=== PATIENT | female | born 1950 | race African-American/Black ===

== ENCOUNTER 2020-04-15 03:59 | Inpatient (IN) | payer OTHER ==
[~2020-04-15] VITALS: Ht 149.9 cm; Wt 74.4 kg
[~2020-04-15 03:59] MED LIST: ALDACTONE25 MG PO; AMLODIPINE BESY10 MG PO; ASPIRIN325 PO; BAYER CHEWABLE81 MG PO; CARVEDILOL25 MG PO; COREG CR10 MG PO; CRESTOR10 MG PO; GLYBURIDE 2.52.5 MG PO; IMDUR 60 MG TAB60 M1 PO; LASIX 20 MG TAB20 MG PO; LISINOPRIL20 MG PO
[2020-04-15] MEDS ORDERED: NEURONTIN100 MG PO (04:09)
[2020-04-15] MEDS ORDERED: RENVELA800 MG PO (04:09)
[2020-04-15] MEDS ORDERED: RENAPLEX-D TAB1 EACH PO (04:10)
[2020-04-15] MEDS ORDERED: LIPITOR 20 MG T20 M1 PO (04:10)
[2020-04-15] MEDS ORDERED: PANTOPRAZOLE SO40 M1 PO (04:10)
[2020-04-15] MEDS ORDERED: GLIPIZIDE ER5 MG PO (04:11)
[2020-04-15] MEDS ORDERED: MELOXICAM15 MG PO (04:11)
[2020-04-15] MEDS ORDERED: NORVASC 2.5 MG2.5 M1 PO (04:11)
[2020-04-15] MEDS ORDERED: CARVEDILOL25 MG PO (04:12)
[2020-04-15 04:14] VITALS: BP 105/49
[2020-04-15 04:32] LABS: ABSOLUTE NEUTROPHILS 7.6 thou/uL (1.4-8.2); BASOPHILS 0.9 % (0.0-2.0); EOSINOPHILS 0.6 % (0.0-3.0); HEMATOCRIT 26.1 % (37.0-47.0); HEMOGLOBIN 8.8 gm/dL (12.0-15.0); LYMPHOCYTES 16.6 % (24.0-44.0); MCH 29.6 pg (26.0-34.0); MCHC 33.6 g/dL (28.0-37.0); MCV 88.1 fL (80.0-100.0); PLATELET COUNT 172 thou/uL (150-400); POLYS 75.9 % (36.0-66.0); RBC 2.96 mil/uL (4.20-5.00); RDW 19.3 % (10.5-14.5)
[2020-04-15 04:44] LABS: ANION GAP 10 mmol/L (7-16); BUN 95 mg/dL (7-18); CALCIUM 8.1 mg/dL (8.5-10.1); CHLORIDE 99 mmol/L (98-107); CO2 24 mmol/L (21-32); GLUCOSE 234 mg/dL (74-106); SODIUM 133 mmol/L (136-145); TROPONIN-I <0.06 ng/mL (<0.06)
[2020-04-15 04:49] LABS: POTASSIUM 9.4 mmol/L (3.5-5.1)
[2020-04-15 04:51] LABS: ALBUMIN 3.2 g/dL (3.4-5.0); DIRECT BILIRUBIN < 0.1 mg/dL (<0.1-0.2); LIPASE 300 U/L (73-393); SGOT 429 U/L (15-37); SGPT 478 U/L (30-65); TOTAL BILIRUBIN 0.4 mg/dL (0.2-1.0); TOTAL PROTEIN 7.4 g/dL (6.4-8.2)
--- NOTE | 2020-04-15 08:14 | EKG ---
[facility] [place] [address] ELECTROCARDIOGRAM REPORT Name: BETTINA COLLINS Room #: 170-8 ADM IN M.R.#: [id number] Admission: 04/15/20 Attend Phys: Sia Altman MD Discharge: Date of : 54 Report #: [id number] THIS REPORT FOR: cc: Mario Snider MD, Elliott L. MD Couchonnal, Luis F. 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 : 1950 Requested By: Clovis Roberson Order Number: [id number] MD: Dc Sarah Measurements Intervals [place] Rate: 48 P: LA: QRS: 93 QRSD: 97 T: 12 QT: 484 QTc: 433 Interpretive Statements Junctional rhythm Right axis deviation Compared to ECG 04/17/2016 02:06:46 Junctional rhythm now present Right-axis deviation now present Sinus rhythm no longer present T-wave abnormality no longer present Electronically Signed On 04-15-2020 8:14:36 CDT by Dc Sarah [email or web address] <ELECTRONICALLY SIGNED> By: Dc Sarah MD 04/15/20813 0 0 Dc Sarah MD /EPI
[2020-04-15 08:27] LABS: CHOLESTEROL 110 mg/dL (<200); HDL CHOLESTEROL 51 mg/dL (>40); LDL CHOLESTEROL 36 mg/dL (<100); TC:HDL 2.2 Ratio (Not establshd); TRIGLYCERIDE 116 mg/dL (<150); VLDL 23 mg/dL (<40)
[2020-04-15 08:29] LABS: SERUM ASSESSMENT Clear
[2020-04-15 08:54] LABS: TSH 10.792 uIU/mL (0.358-3.740)
[2020-04-15 10:03] LABS: FOLIC ACID 47.9 ng/mL (8.6-58.9)
--- NOTE | 2020-04-15 11:50 | NUR ---
VASCULAR ACCESS CONSULTED FOR CVAD. PT DID SIGN CONSENT BUT NOT VERY COOPERATIVE, RESTLESS. HAVING DIFFICULTY LAYING FLAT OR STAYING STILL AT PRESENT. SO 2 ADDITIONAL PIV'S STARTED. WILL DO CVAD IF PT ABLE TO COOPERATE LATER.
--- NOTE | 2020-04-15 16:18 | 2DMMODE ---
[facility] [place] [address] 2 D/M-MODE ECHOCARDIOGRAM Name: BETTINA COLLINS Room #: 170-8 ADM IN M.R.#: [id number] Admission: 04/15/20 Attend Phys: Sia Altman MD Discharge: Date of : 54 Report #: [id number] THIS REPORT FOR: cc: Mario Snider MD, Elliott L. MD Lammoglia, Francisco J. MD ~ APPROVED REPORT Study performed: 04/15/2020 13:57:06 EXAM: Comprehensive 2D, Doppler, and color-flow Echocardiogram Patient Location: ER Room #: 8 Status: routine BSA: 1.72 HR: 87 bpm BP: 151/85 mmHg Rhythm: NSR Other Information Study Quality: Good Indications Arrhythmia Assess Ejection Fraction Hypertension/HDD 2D Dimensions RVDd: 36.54 mm IVSd: 14.28 (7-11mm) LVOT Diam: 19.97 (18-24mm) LVDd: 37.91 mm PWd: 13.20 (7-11mm) Ascending Ao: 28.17 (22-36mm) LVDs: 25.19 (25-40mm) Aortic Root: 32.74 mm IVC: 21.00 mm Volumes Left Atrial Volume (Systole) Single Plane 4CH: 68.01 mL Single Plane 2CH: 61.38 mL LA ESV Index: 43.00 mL/m2 Aortic Valve AoV Peak Varun.: 2.31 m/s AO Peak Gr.: 21.29 mmHg LVOT Max P.93 mmHg LVOT Max V: 1.49 m/s [facility] [address] [address] 2 D/M-MODE ECHOCARDIOGRAM Name: BETTINA COLLINS Room #: 170-8 [facility] IN [facility].#: [id number] Admission: 04/15/20 Attend Phys: Bruno Moeller Discharge: Date of : 54 Report #: [id number] Vmax: 2.03 cm2 Mitral Valve E/A Ratio: 0.8 MV Decel. Time: 165.51 ms MV E Max Varun.: 1.25 m/s MV A Varun.: 1.52 m/s MV PHT: 48.00 ms IVRT: 41.52 ms Pulmonary Valve PV Peak Varun.: 1.44 m/s PV Peak Gr.: 8.33 mmHg Pulmonary Vein P Vein S: 1.07 m/s P Vein A: 0.27 m/s P Vein D: 0.61 m/s P Vein A Dur.: 101.5 msec P Vein S/D Ratio: 1.75 Tricuspid Valve TR Peak Varun.: 4.27 m/s TR Peak Gr.: 72.82 mmHg PA Pressure: 83.00 mmHg Left Ventricle The left ventricle is normal size. There is normal LV segmental wall motion. Mild concentric left ventricular hypertrophy. The left ventricular systolic function is normal. The left ventricular ejection fraction is within the normal range. LVEF is 60-65%. Grade I - abnormal relaxation pattern. Right Ventricle The right ventricle is normal size. The right ventricular systolic function is normal. Atria Left atrium is dilated. Right atrium is dilated. Aortic Valve The aortic valve is normal in structure. The Aortic valve is sclerotic. No aortic regurgitation is present. There is no aortic valvular stenosis. Mitral Valve The mitral valve is normal in structure. Mild mitral regurgitation. No evidence of mitral valve stenosis. [facility] [address] [place] [address] 2 D/M-MODE ECHOCARDIOGRAM Name: BETTINA COLLINS Aida Room #: 170-8 ADM IN [facility].#: [id number] Admission: 04/15/20 Attend Phys: Bruno Moeller Discharge: Date of : 54 Report #: [id number] Tricuspid Valve The tricuspid valve is normal in structure. There is mild to moderate tricuspid regurgitation. Estimated PAP 83 mmHg. There is severe pulmonary hypertension. Pulmonic Valve The pulmonary valve is normal in structure. Trace to mild pulmonic regurgitation. Great Vessels The aortic root is normal in size. IVC is dilated and collapses <50% with inspiration. Pericardium There is no pericardial effusion. <Conclusion> The left ventricle is normal size. LVEF is 60-65%. Left atrium is dilated. Right atrium is dilated. The aortic valve is normal in structure. The Aortic valve is sclerotic. Mild mitral regurgitation. The tricuspid valve is normal in structure. There is mild to moderate tricuspid regurgitation. Estimated PAP 83 mmHg. There is severe pulmonary hypertension. The pulmonary valve is normal in structure. Trace to mild pulmonic regurgitation. There is no pericardial effusion. <ELECTRONICALLY SIGNED> By: Louie Bonds MD 04/15/20 1617 161 161 Louie Bonds MD /INF
[2020-04-15 17:00] LABS: HEMATOCRIT 25.3 % (37.0-47.0); HEMOGLOBIN 8.8 gm/dL (12.0-15.0); MCH 29.8 pg (26.0-34.0); MCHC 34.8 g/dL (28.0-37.0); MCV 85.6 fL (80.0-100.0); RBC 2.95 mil/uL (4.20-5.00); RDW 19.1 % (10.5-14.5); WBC 11.8 thou/uL (4.0-11.0)
[2020-04-15 17:14] LABS: ALBUMIN 3.4 g/dL (3.4-5.0); CALCIUM 8.6 mg/dL (8.5-10.1); PHOSPHORUS 2.6 mg/dL (2.5-4.9)
[2020-04-15 17:15] LABS: CREATININE 5.6 mg/dL (0.6-1.0); POTASSIUM 4.6 mmol/L (3.5-5.1)
--- NOTE | 2020-04-15 19:42 | HC ---
[facility] [place] [address] CONSULTATION Name: BETTINA COLLINS Room #: 170-8 ADM IN M.R.#: [id number] Admission: 04/15/20 Attend Phys: Sia Altman MD Discharge: Date of : 54 Report #: [id number] THIS REPORT FOR: cc: Mario Snider MD,Jace Ramos MD, MD ~ CC: Sia Snider DATE OF SERVICE: 04/15/2020 REASON FOR CONSULTATION: End-stage renal disease with life threatening hyperkalemia. REASON FOR PRESENTATION: Brought by EMS accompanied by her spouse for missing dialysis. HISTORY OF PRESENT ILLNESS: This is a 69-year-old who was not able to provide me with much details, but she had missed 3 of her dialysis sessions. She is usually on a Saturday, and Saturday. She goes to [facility] in [place]. She told the Emergency Room staff that she slept through most of the week because of a new added blood pressure medication and she missed as stated above 3 of her dialysis session. She did not report any active symptoms to me during her encounter with me, but she was somewhat lethargic and very vague on details, she reported to the to the Emergency staff that she has been having some vomiting. She denied any chest pain or shortness of breath. The patient was extremely bradycardic on her presentation to the Emergency Room. The ER staff related to me that she had complete heart block, but when i reviewed her EKG, it showed a jnctional rhythm . The patient had been on dialysis for the last 4 years. She has longstanding diabetes mellitus and hypertension. 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 Other details as stated above are not available due to the patient's current condition. PAST MEDICAL HISTORY: 1. End-stage renal disease, maintained on hemodialysis, thought to be due to diabetes mellitus and hypertension. 2. Remote history of cerebrovascular accident. 3. Hypertension. 4. Left-sided AV fistula. 5. End-stage renal disease, maintained on hemodialysis every Saturday, and Saturday. MEDICATIONS: Reported. 1. Aspirin. [address] [address] CONSULTATION Name: BETTINA COLLINS Room #: 170-8 ADM IN ..#: [id number] Admission: 04/15/20 Attend Phys: Sia Altman MD Discharge: Date of : 54 Report #: [id number] 2. Crestor. 3. Amlodipine. 4. Gabapentin. 5. Sevelamer. 6. Meloxicam. 7. Glipizide. 8. It is listed that the patient is taking lisinopril and spironolactone. However, I reviewed her bag of medications and none of those are with her. REVIEW OF SYSTEMS: Unable to obtain given the patient's current mental status. FAMILY HISTORY: Unable to obtain given the patient's current mental status. SOCIAL HISTORY: She lives with her spouse. Other details are not available. PHYSICAL EXAMINATION: GENERAL: She was lethargic, confused. She goes into episodes of orientation, then dozes into deep sleep. VITAL SIGNS: Blood pressure was 130/60, temperature was 36.5. Pulse rate was 50, maintained on dopamine infusion. HEAD AND NECK: There is no jugular venous distention. CHEST: Decreased air entry bilaterally with crackles. CARDIOVASCULAR: She is bradycardic with no rub detected. ABDOMEN: Soft, nontender with no hepatosplenomegaly. LOWER EXTREMITIES: There is no edema. UPPER EXTREMITIES: There is a left-sided AV fistula. LABORATORY VALUES: Revealed a sodium of 133, potassium of 9.4, chloride of 99, bicarb 24, BUN of 95, creatinine of 13. Her troponins initially were less than 0.06. EKG was consistent with junctional rhythm . CBC showed a hemoglobin of 8.8. ASSESSMENT, IMPRESSION AND PLAN: 1. Life threatening hyperkalemia. 2. End-stage renal disease, noncompliance with dialysis regimen. 3. The patient had received appropriate treatment for her hyperkalemia including calcium gluconate. Emergent hemodialysis was arranged for the patient. We will repeat hemodialysis in the morning. Her rhythm issues should resolve with improvement of her hyperkalemia. I will repeat her potassium later this afternoon. 4. Counseling about compliance with her dialysis regimen. 5. Workup for her anemia. [address] [address] CONSULTATION Name: KARINABETTINA D Room #: 170-8 ADM IN M.R.#: [id number] Admission: 04/15/20 Attend Phys: Sia Altman MD Discharge: Date of : 54 Report #: [id number] 6. Continue to follow during her hospital stay regarding her dialysis issues and end-stage renal disease related problems. The patient was evaluated in the Emergency Room while on dialysis this morning. <ELECTRONICALLY SIGNED> By: Jace Kemp MD 04/15/20 1942 0752 3 Jace Kemp MD /nt
[2020-04-15 21:54] VITALS: BP 125/57
[2020-04-15 23:30] VITALS: BP 132/69
[2020-04-16 00:06] LABS: GLYCOHEMOGLOBIN (HGB A1C) 5.6 % (4.8-5.6)
--- NOTE | 2020-04-16 04:20 | NUR ---
PT ARRIVED ON THE UNIT FROM ER @2330. A&OX4 ADDMISSION DONE AND CHARTED. PT STATED HASN'T EATEN ANYTHING ALL DAY. SPOKE TO ONCALL PROVIDER DIET CHANGED AND SNACK BOX PROVIDED. MED REC DONE AND PT HOME MEDICATION SENT TO PHARMACY. PT UP WITH STANDBY TO THE BATHROOM. DENIES PAIN/N/V. WILL CONT TO MONITOR.
[2020-04-16 04:30] VITALS: BP 120/63
[2020-04-16 06:58] LABS: BASOPHILS 0.7 % (0.0-2.0); HEMATOCRIT 24.1 % (37.0-47.0); HEMOGLOBIN 8.3 gm/dL (12.0-15.0); LYMPHOCYTES 25.6 % (24.0-44.0); MCH 30.1 pg (26.0-34.0); MCHC 34.6 g/dL (28.0-37.0); MONOCYTES 8.5 % (1.0-8.0); PLATELET COUNT 200 thou/uL (150-400); POLYS 64.2 % (36.0-66.0); RBC 2.77 mil/uL (4.20-5.00); RDW 19.4 % (10.5-14.5); WBC 9.3 thou/uL (4.0-11.0)
[2020-04-16 07:12] LABS: CALCIUM 8.6 mg/dL (8.5-10.1); PHOSPHORUS 3.3 mg/dL (2.5-4.9); POTASSIUM 4.8 mmol/L (3.5-5.1)
[2020-04-16 07:13] LABS: CREATININE 7.3 mg/dL (0.6-1.0)
[2020-04-16 07:15] LABS: ALBUMIN 3.1 g/dL (3.4-5.0); DIRECT BILIRUBIN 0.2 mg/dL (<0.1-0.2); TOTAL BILIRUBIN 0.5 mg/dL (0.2-1.0); TOTAL PROTEIN 6.6 g/dL (6.4-8.2)
[2020-04-16 08:20] VITALS: BP 116/66
[2020-04-16 12:15] VITALS: BP 135/56
--- NOTE | 2020-04-16 12:17 | NUR ---
PT ASSESSED, VSS, POC REVIEWED, PT VERBALIZED UNDERSTANDING, HD NURSE AT BEDSIDE DOING DIALYSIS, PT APPEARS TO BE RESTING COMFORTABLY IN BED, REPLIED "NO" WHEN ASKED IF HAVING ANY PAIN, TV ON, CONSENT FOR EGD SIGNED, WILL MONITOR
[2020-04-16 16:30] VITALS: BP 134/82
[2020-04-16 19:31] VITALS: BP 143/75
[2020-04-17 04:45] VITALS: BP 142/77
--- NOTE | 2020-04-17 06:27 | NUR ---
ASSESSMENTS CHARTED, MEDS CHARTED GIVEN. PATIENT RESTING IN ROOM . PATIENT IS TO HAVE AN ENDOSCOPY THIS MORNING. NPO SINCE MIDNIGHT. PATIENT COVID NEG. PLAN OF CARE SHE MAY GO HOME THIS AM AFTER HER PROCEDURE. FALL PRECAUTIONS IN PLACE DURING SHIFT.
[2020-04-17 08:20] VITALS: BP 143/69
[2020-04-17 10:55] LABS: HEMOGLOBIN 9.6 gm/dL (12.0-15.0)
[2020-04-17 10:56] LABS: HEMATOCRIT 28.7 % (37.0-47.0)
[2020-04-17 12:15] VITALS: BP 178/87
[2020-04-17 12:30] VITALS: BP 135/75
[2020-04-17 13:53] VITALS: BP 135/75
--- NOTE | 2020-04-17 14:35 | NUR ---
ASSUMED PATIENT CARE AT 0700. A/O X4. NO DISDESSS NOTED. HH 9.6. DC TO HOME.
== END 2020-04-17 14:55 | disposition home or self-care (01) | DRG 640 ==
LOC: ER 03:59 → EROBS 05:26 → 2N 23:17
PROVIDERS: Emergency Medicine; Hospitalist; Nurse Practitioner; ADMIT Hospitalist; ATTEND Hospitalist
PROC: 5A1D70Z Performance of Urinary Filtration, Intermittent, Less than 6 Hours Per Day (ICD-10-PCS; principal; 2020-04-15)
PROC: 5A1D70Z Performance of Urinary Filtration, Intermittent, Less than 6 Hours Per Day (ICD-10-PCS; 2020-04-16)
DX: E87.5 Hyperkalemia (principal); N18.6 End stage renal disease; K92.1 Melena; I12.0 Hypertensive chronic kidney disease with stage 5 chronic kidney disease or end stage renal disease; E11.22 Type 2 diabetes mellitus with diabetic chronic kidney disease; E03.9 Hypothyroidism, unspecified; R74.0 Nonspecific elevation of levels of transaminase and lactic acid dehydrogenase [LDH]; E78.5 Hyperlipidemia, unspecified; I51.7 Cardiomegaly; D64.9 Anemia, unspecified; K21.9 Gastro-esophageal reflux disease without esophagitis; M54.9 Dorsalgia, unspecified; G89.29 Other chronic pain; I27.20 Pulmonary hypertension, unspecified; I95.9 Hypotension, unspecified; Z99.2 Dependence on renal dialysis; Z79.82 Long term (current) use of aspirin; Z79.899 Other long term (current) drug therapy; Z79.84 Long term (current) use of oral hypoglycemic drugs; Z91.15 Patient's noncompliance with renal dialysis; Z86.73 Personal history of transient ischemic attack (TIA), and cerebral infarction without residual deficits; Z95.828 Presence of other vascular implants and grafts; Z03.818 Encounter for observation for suspected exposure to other biological agents ruled out
CPT/HCPCS: 10081; 32100

== ENCOUNTER 2021-02-03 23:26 | Inpatient (IN) | payer OTHER ==
[~2021-02-03] VITALS: Ht 149.9 cm; Wt 74.0 kg
[~2021-02-03 23:26] MED LIST changes: +GLIPIZIDE ER5 MG PO; +LIPITOR 20 MG T20 M1 PO; +MELOXICAM15 MG PO; +NEURONTIN100 MG PO; +NORVASC 2.5 MG2.5 M1 PO; +PANTOPRAZOLE SO40 M1 PO; +RENAPLEX-D TAB1 EACH PO; +RENVELA800 MG PO
[2021-02-03 23:35] VITALS: BP 215/103
[2021-02-04] VITALS (7 sets, daily range): BP systolic 142–188; BP diastolic 67–102
[2021-02-04 00:02] LABS: ABSOLUTE NEUTROPHILS 9.1 thou/uL (1.4-8.2); BASOPHILS 0.6 % (0.0-2.0); EOSINOPHILS 1.5 % (0.0-3.0); HEMATOCRIT 24.6 % (37.0-47.0); HEMOGLOBIN 8.4 gm/dL (12.0-15.0); LYMPHOCYTES 15.4 % (24.0-44.0); MCH 29.8 pg (26.0-34.0); MCHC 34.1 g/dL (28.0-37.0); MCV 87.4 fL (80.0-100.0); MONOCYTES 5.7 % (1.0-8.0); PLATELET COUNT 202 thou/uL (150-400); POLYS 76.8 % (36.0-66.0); RBC 2.82 mil/uL (4.20-5.00); RDW 16.8 % (10.5-14.5); WBC 11.9 thou/uL (4.0-11.0)
[2021-02-04 00:04] LABS: CALCIUM 8.6 mg/dL (8.5-10.1); CREATININE 22.4 mg/dL (0.6-1.0); POTASSIUM 4.6 mmol/L (3.5-5.1)
[2021-02-04 00:05] LABS: BE(vivo) -7.3 mmol/L (-2 to +3); HCO3 17.2 mmol/L (22.0-26.0); PCO2 31.8 mmHg (35.0-45.0); PO2 68.4 mmHg (80.0-100.0); pH 7.352 (7.360-7.450); sO2 93.2 % (92.0-98.0)
[2021-02-04 00:12] LABS: ALBUMIN 3.5 g/dL (3.4-5.0); TOTAL BILIRUBIN 0.6 mg/dL (0.2-1.0); TOTAL PROTEIN 7.7 g/dL (6.4-8.2); TROPONIN-I 0.06 ng/mL (<0.06)
[2021-02-04] MEDS ORDERED: LASIX 40 MG TAB40 MG PO (01:50)
[2021-02-04] MEDS ORDERED: CARVEDILOL25 MG PO (01:51)
--- NOTE | 2021-02-04 04:18 | NUR ---
Admission history reviewd, Admission assessments completed, care plan initiated. Tolerating BIPAP with 50%, sats mid to upper 90's. Oliguric, Lasix IV given, no void yet.
[2021-02-04 06:05] LABS: CALCIUM 8.4 mg/dL (8.5-10.1); CREATININE 22.7 mg/dL (0.6-1.0); POTASSIUM 4.8 mmol/L (3.5-5.1); TROPONIN-I 0.19 ng/mL (<0.06)
[2021-02-04 09:57] LABS: WBC 8.8 thou/uL (4.0-11.0)
[2021-02-04 09:59] LABS: ABSOLUTE NEUTROPHILS 6.7 thou/uL (1.4-8.2); BASOPHILS 1.1 % (0.0-2.0); EOSINOPHILS 0.9 % (0.0-3.0); HEMATOCRIT 23.1 % (37.0-47.0); HEMOGLOBIN 7.7 gm/dL (12.0-15.0); LYMPHOCYTES 16.1 % (24.0-44.0); MCH 29.7 pg (26.0-34.0); MCHC 33.5 g/dL (28.0-37.0); MCV 88.5 fL (80.0-100.0); MONOCYTES 5.6 % (1.0-8.0); PLATELET COUNT 152 thou/uL (150-400); POLYS 76.3 % (36.0-66.0); RBC 2.61 mil/uL (4.20-5.00); RDW 17.2 % (10.5-14.5)
[2021-02-04 10:10] LABS: % SATURATION 20 % (20-39); IRON 33 ug/dL (50-170); TIBC 161 ug/dL (250-450)
--- NOTE | 2021-02-04 12:01 | 2DMMODE ---
[facility] [place] [address] 2 D/M-MODE ECHOCARDIOGRAM Name: BETTINA COLLINS Room #: 350-P ADM IN M.R.#: [id number] Admission: 02/04/21 Attend Phys: Bernardo Monsalve MD Discharge: Date of : 54 Report #: [id number] THIS REPORT FOR: cc: Mario Snider MD, Elliott L. MD Lundgren, Craig H. MD [facility] ~ APPROVED REPORT Study performed: 02/04/2021 10:54:51 EXAM: Comprehensive 2D, Doppler, and color-flow Echocardiogram Patient Location: Bedside Room #: 350 Status: on-call BSA: 1.70 HR: 77 bpm BP: 161/81 mmHg Rhythm: NSR Other Information Study Quality: Good Indications Short of breath. Rule out pericardial effusion. Hx: DM, HTN, HLP, ESRD. 2D Dimensions RVDd: 42.36 mm IVSd: 10.87 (7-11mm) LVOT Diam: 20.22 (18-24mm) LVDd: 47.97 mm PWd: 11.41 (7-11mm) Ascending Ao: 31.96 (22-36mm) LVDs: 29.80 (25-40mm) Left Atrium: 39.49 (27-40mm) Aortic Root: 28.75 mm Volumes Left Atrial Volume (Systole) Single Plane 4CH: 70.77 mL Single Plane 2CH: 78.86 mL LA ESV Index: 47.00 mL/m2 Aortic Valve AoV Peak Varun.: 2.26 m/s AO Peak Gr.: 20.50 mmHg LVOT Max P.15 mmHg AO Mean Gr.: 11.61 mmHg [facility] [address] [place] [address] 2 D/M-MODE ECHOCARDIOGRAM Name: BETTINA COLLINS Room #: [address] [place] [address]#: [id number] Admission: 02/04/21 Attend Phys: Bernardo Monsalve MD Discharge: Date of : 54 Report #: [id number] AO V2 Mean: 1.62 m/s LVOT Max V: 1.43 m/s AO V2 VTI: 53.10 cm SOFÍA Vmax: 2.02 cm2 Mitral Valve E/A Ratio: 0.9 MV Decel. Time: 156.68 ms MV E Max Varun.: 0.81 m/s MV A Varun.: 0.95 m/s MV PHT: 45.44 ms IVRT: 101.50 ms Pulmonary Valve PV Peak Varun.: 1.15 m/s PV Peak Gr.: 5.31 mmHg Pulmonary Vein P Vein S: 0.84 m/s P Vein A: 0.31 m/s P Vein D: 0.64 m/s P Vein A Dur.: 129.2 msec P Vein S/D Ratio: 1.31 Tricuspid Valve TR Peak Varun.: 4.16 m/s RAP Estimate: 5.00 mmHg TR Peak Gr.: 69.07 mmHg PA Pressure: 74.00 mmHg Left Ventricle The left ventricle is normal size. There is normal LV segmental wall motion. Mild concentric left ventricular hypertrophy. Left ventricular systolic function is normal. LVEF is 60-65%. Mild diastolic dysfunction Right Ventricle Right ventricle is at the upper limits of normal. The right ventricular systolic function is normal. Atria Left atrium is moderately dilated. Right atrium is mildly dilated. Aortic Valve Aortic valve is mildly calcified; trileaflet. No aortic regurgitation is present. There is no aortic valvular stenosis. Mitral Valve The mitral valve is normal in structure. Mild mitral regurgitation. [facility] [address] [place] [address] 2 D/M-MODE ECHOCARDIOGRAM Name: BETTINA COLLINS Aida Room #: 350-P [facility] IN [facility]#: [id number] Admission: 02/04/21 Attend Phys: Bernardo Monsalve MD Discharge: Date of : 54 Report #: [id number] Tricuspid Valve The tricuspid valve is normal in structure. Moderate tricuspid regurgitation. Estimated PAP is 75mmHg. Pulmonic Valve The pulmonary valve is normal in structure. Trace pulmonic regurgitation. Great Vessels The aortic root is normal in size. The ascending aorta is normal in size. IVC is normal in size and collapses >50% with inspiration. Pericardium Small anterior pericardial effusion. <Conclusion> Left ventricular systolic function is normal. There is normal LV segmental wall motion. LVEF is 60-65%. Mild diastolic dysfunction Aortic valve is mildly calcified; trileaflet. No aortic regurgitation or stenosis The mitral valve is normal in structure. Mild mitral regurgitation. Moderate tricuspid regurgitation. Estimated pulmonary artery pressure of 75mmHg. Small anterior pericardial effusion. <ELECTRONICALLY SIGNED> By: Fam Kemp MD, [facility] 02/04/21 1201 120 120 Fam Kemp MD, FAC /INF
--- NOTE | 2021-02-04 12:33 | EKG ---
[address] 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
[2021-02-05 00:04] VITALS: BP 148/78
[2021-02-05 04:11] VITALS: BP 133/67
--- NOTE | 2021-02-05 04:50 | NUR ---
Patient making progress towards outcome goals. Oxygenation improved on 3L when awake and tolerating BIPAP at 50% oxygen sats mid to upper 90's. No void. Left arm 3+ edema,mild achiness. Elevated with pillow. Marilia Cooper BUILDING TRADES INSTRUCTOR notified.
[2021-02-05 05:07] LABS: ABSOLUTE NEUTROPHILS 5.3 thou/uL (1.4-8.2); BASOPHILS 0.8 % (0.0-2.0); EOSINOPHILS 2.1 % (0.0-3.0); HEMATOCRIT 20.6 % (37.0-47.0); HEMOGLOBIN 7.1 gm/dL (12.0-15.0); LYMPHOCYTES 21.7 % (24.0-44.0); MCH 30.3 pg (26.0-34.0); MCHC 34.4 g/dL (28.0-37.0); MONOCYTES 7.4 % (1.0-8.0); PLATELET COUNT 134 thou/uL (150-400); RBC 2.34 mil/uL (4.20-5.00); RDW 17.3 % (10.5-14.5); WBC 7.8 thou/uL (4.0-11.0)
[2021-02-05 05:36] LABS: HEP B SURFACE Ab(ANTI-HBS Non Reactive (()); HEPATITIS B SURFACE AG Negative (Negative)
[2021-02-05 05:37] LABS: ALBUMIN 2.7 g/dL (3.4-5.0); CALCIUM 8.4 mg/dL (8.5-10.1); MAGNESIUM 1.8 mg/dL (1.8-2.4); PHOSPHORUS 4.1 mg/dL (2.5-4.9); POTASSIUM 4.1 mmol/L (3.5-5.1); TOTAL BILIRUBIN 0.9 mg/dL (0.2-1.0); TOTAL PROTEIN 6.1 g/dL (6.4-8.2)
--- NOTE | 2021-02-05 07:15 | NUR ---
Hypoglycemia per lab results noted 49. Fingerstick also 49. Treated with Apple juice. Patient alert and oriented, no symptoms. Recheck blood sugar up to 74.
[2021-02-05 07:56] VITALS: BP 162/66
--- NOTE | 2021-02-05 11:34 | EKG ---
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
[2021-02-05 11:56] VITALS: BP 124/51
[2021-02-05 15:57] VITALS: BP 128/47
[2021-02-05 19:13] VITALS: BP 144/57
[2021-02-06] VITALS (7 sets, daily range): BP systolic 135–148; BP diastolic 54–75
--- NOTE | 2021-02-06 04:20 | NUR ---
Sapphirenet making progress towards outcome goals. Oxygenation optimal with 3L/NC. Patient does not wear oxygen at home. Dialysis ordered for 02/07/21. Up to bathroom with standy assist, gait steady. Ologuric but did void unmeasured after Lasix. Good bowel movement.
--- NOTE | 2021-02-06 13:14 | NUR ---
INITIAL ASSESSMENT: Received consult to arrange outpatient dialysis. ALEKSANDRA reviewed chart and spoke with nursing and attending physician. Pt was admitted from home due to CHF and renal failure. Pt has been doing home peritoneal dialysis for the past several weeks and has been non-compliant. ALEKSANDRA met with pt at bedside. Introduced role of SW. Pt is alert/orientated x 4. Pt report she lives at home with her fiance. Prior to admission, pt was independent with ADLs. No use of DME. Pt was going to the [facility] dialysis clinic T-R-S at 0700. Pt was driving herself to/from dialysis. SW discussed recommendation for pt to return to outpatient hemodialysis. Pt verbalized understanding and is agreeable with returing to outpatient dialysis. No hx of HH services. Pt's PCP is Dr. Jose Rafael Snider. SW also discussed possible need for home O2 and HH. Pt is agreeable with both. Options provided. No preference voiced. ALEKSANDRA confirmed pt's home address and phone number. ALEKSANDRA faxed referral to [facility] and spoke with Deonna at the dialysis clinic. The clinical team will need to review pt's info. Deonna provided ALEKSANDRA with the central intake number as well. ALEKSANDRA spoke with Karly at central intake, who states that it would be considered a transfer and not a new admission, as pt is currently on service with the clinic, who is managing her home dialysis. ALEKSANDRA followed up with the [facility], who states that they are working on getting pt back on her prior schedule. Awaiting confirmation of dialysis chair time. ALEKSANDRA faxed HH referral to [facility] and notified HH liaison. ALEKSANDRA also faxed face sheet to [facility] for home O2. Pt does qualify for 2L continuous. Awaiting confirmation from the dialysis clinic at this time. ALEKSANDRA is following to assist as needed with discharge planning.
--- NOTE | 2021-02-06 13:17 | NUR ---
Assess due to consult received. Pt with hx DM, ESRD. Had been on hemodialysis, then recently changed to PD, but noncompliant. Renal has placed pt back on HD for home. Eats 75-100% of meals. Wts are stable. A1C 5.6 last April. Note likely discharge soon. Low nutrition risk
[2021-02-06 17:29] LABS: HEMATOCRIT 24.9 % (37.0-47.0); HEMOGLOBIN 8.4 gm/dL (12.0-15.0); MCH 29.7 pg (26.0-34.0); MCHC 33.7 g/dL (28.0-37.0); MCV 88.2 fL (80.0-100.0); RBC 2.82 mil/uL (4.20-5.00); RDW 17.7 % (10.5-14.5); WBC 8.5 thou/uL (4.0-11.0)
[2021-02-06 17:40] LABS: CALCIUM 8.1 mg/dL (8.5-10.1)
[2021-02-06 17:44] LABS: CREATININE 6.8 mg/dL (0.6-1.0)
[2021-02-06] MEDS ORDERED: SODIUM BICARBO650 M3 PO (17:55)
[2021-02-06] MEDS ORDERED: CEFDINIR300 MG PO (17:56)
--- NOTE | 2021-02-06 18:09 | NUR ---
DR MARLEY NOTIFIED OF LT VENOUS ULTASOUND IMPRESSION-PATENT LT UPPER ARM DIALYSIS FISTULA WITH 3 ACCESS DEGENERATION SITE PSEUDOANEURYSMS.
--- NOTE | 2021-02-06 18:33 | NUR ---
Family voiced concerns with discharge, had questions for the SW. SW was contacted and provided a phone conference with the 3 daughters. All questins were answered per the family and SW, the family wish to continue discharge as plan home with hospice.
--- NOTE | 2021-02-06 19:09 | NUR ---
PT DISCHARGED HOME W/ HH AND WILL START DIALYSIS TOMORROW PER ORDERS...
--- NOTE | 2021-02-08 15:18 | NUR ---
SW received call from Stacey at [facility] stating they did not receive the script for pt's home O2. Chart not yet scanned. SW obtained signed script from hospitalist. Faxed to [facility]. Received confirmation. Case closed.
== END 2021-02-06 19:00 | disposition home health service (06) | DRG 291 ==
LOC: ER 23:26 → EROBS 02-04 01:15 → 3W 02-04 01:15
PROVIDERS: Emergency Medicine; Internal Medicine Nephrology; Nurse Practitioner Family; ADMIT Internal Medicine; ATTEND Internal Medicine
PROC: 5A1D70Z Performance of Urinary Filtration, Intermittent, Less than 6 Hours Per Day (ICD-10-PCS; principal; 2021-02-04)
PROC: 5A09357 Assistance with Respiratory Ventilation, Less than 24 Consecutive Hours, Continuous Positive Airway Pressure (ICD-10-PCS; principal; 2021-02-04)
PROC: 5A1D70Z Performance of Urinary Filtration, Intermittent, Less than 6 Hours Per Day (ICD-10-PCS; 2021-02-06)
DX: I13.2 Hypertensive heart and chronic kidney disease with heart failure and with stage 5 chronic kidney disease, or end stage renal disease (principal); J96.01 Acute respiratory failure with hypoxia; N18.6 End stage renal disease; I50.32 Chronic diastolic (congestive) heart failure; I16.0 Hypertensive urgency; E66.9 Obesity, unspecified; D63.1 Anemia in chronic kidney disease; E11.22 Type 2 diabetes mellitus with diabetic chronic kidney disease; I27.20 Pulmonary hypertension, unspecified; I08.1 Rheumatic disorders of both mitral and tricuspid valves; E78.5 Hyperlipidemia, unspecified; I72.8 Aneurysm of other specified arteries; Z20.822 Contact with and (suspected) exposure to COVID-19; Z68.32 Body mass index [BMI] 32.0-32.9, adult; Z99.2 Dependence on renal dialysis; Z79.84 Long term (current) use of oral hypoglycemic drugs; Z79.899 Other long term (current) drug therapy; Z91.15 Patient's noncompliance with renal dialysis
CPT/HCPCS: 10879; 32100